=== PATIENT | male | born 1995 | race African-American/Black ===

== ENCOUNTER 2021-06-28 12:04 | Emergency (ER) | payer OTHER ==
[~2021-06-28] VITALS: Ht 165.1 cm; Wt 75.0 kg
[2021-06-28 12:15] VITALS: BP 126/77
== END 2021-06-28 19:46 | disposition left against medical advice (07) ==
LOC: ER 12:04
DX: F10.129 Alcohol abuse with intoxication, unspecified (principal); Y90.8 Blood alcohol level of 240 mg/100 ml or more; R53.1 Weakness; Z59.02 Unsheltered homelessness
CPT/HCPCS: 36415; 80320; 99283; G0480